=== PATIENT | male | born 2000 | race Caucasian/White ===

== ENCOUNTER 2018-05-01 01:23 | Emergency (ER) | payer OTHER ==
[~2018-05-01] VITALS: Ht 177.8 cm; Wt 77.1 kg
--- NOTE | ~2018-05-01 | EKG ---
[address] [employer] [place] [address] ELECTROCARDIOGRAM REPORT Name: EBEN ALATORRE Room #: DEP [facility] CENTERHemalatha#: [id number] Admission: 05/01/18 Attend Phys: Discharge: 05/01/18 Date of : [birth year] Report #: [id number] THIS REPORT FOR: //name// [facility] ED Test Date: 2018-05-01 Test Time: 02:20:00 Pat Name: EBEN ALATORRE Department: Room: Gender: [employer]: gabby : 2000 Requested By: Charles Neswome Order Number: [id number] MD: Enio Briggs Measurements Intervals Capac Rate: 53 P: -16 WA: 139 QRS: 46 QRSD: 99 T: 23 QT: 425 QTc: 399 Interpretive Statements Sinus rhythm No previous ECG available for comparison Electronically Signed On 05-01-2018 16:23:14 CDT by Enio Briggs [email or web address] <ELECTRONICALLY SIGNED> By: Enio Briggs MD 05/01/18 1623 0220 0220 Enio Briggs MD /EPI
[~2018-05-01 01:23] MED LIST: IBUPROFEN 600600 M1 PO; NOHOMEMEDICATIONS
[2018-05-01 02:13] LABS: BASOPHILS 0.8 % (0.0-2.0); EOSINOPHILS 0.8 % (0.0-3.0); HEMATOCRIT 49.6 % (42.0-52.0); HEMOGLOBIN 17.6 gm/dL (14.0-18.0); LYMPHOCYTES 18.2 % (24.0-44.0); MCH 32.2 pg (26.0-34.0); MCHC 35.5 g/dL (28.0-37.0); MCV 90.8 fL (80.0-100.0); MONOCYTES 7.5 % (1.0-8.0); PLATELET COUNT 230 thou/uL (150-400); POLYS 72.7 % (36.0-66.0); RBC 5.46 mil/uL (4.50-6.00); RDW 13.2 % (10.5-14.5)
[2018-05-01 02:22] LABS: APTT 29.1 Seconds (24.5-32.8); INR 1.1; PROTIME 10.8 Seconds (9.3-11.4)
[2018-05-01 02:33] LABS: ANION GAP 7 mmol/L (7-16); BUN 15 mg/dL (7-18); CALCIUM 9.4 mg/dL (8.5-10.1); CHLORIDE 103 mmol/L (98-107); CO2 28 mmol/L (21-32); CREATININE 1.1 mg/dL (0.7-1.3); GLUCOSE 88 mg/dL (74-106); SODIUM 138 mmol/L (136-145)
[2018-05-01 02:42] LABS: ALBUMIN 4.4 g/dL (3.4-5.0); SALICYLATE 3.6 mg/dL (2.8-20.0); SGOT 22 U/L (15-37); SGPT 35 U/L (30-65); TOTAL BILIRUBIN 1.2 mg/dL (<0.1-1.0); TOTAL PROTEIN 8.1 g/dL (6.4-8.2); TROPONIN-I <0.06 ng/mL (<0.06)
[2018-05-01] MEDS ORDERED: TRAMADOL 50 MG50 MG PO (04:19)
[2018-05-01] MEDS ORDERED: NAPROSYN500 MG PO (04:21)
[2018-05-01 04:54] VITALS: BP 118/93
== END 2018-05-01 05:18 | disposition home or self-care (01) ==
LOC: ER 01:23
PROVIDERS: Emergency Medicine
DX: S16.1XXA Strain of muscle, fascia and tendon at neck level, initial encounter (principal); S20.219A Contusion of unspecified front wall of thorax, initial encounter; S80.02XA Contusion of left knee, initial encounter; S80.01XA Contusion of right knee, initial encounter; S40.011A Contusion of right shoulder, initial encounter; S60.412A Abrasion of right middle finger, initial encounter; F17.210 Nicotine dependence, cigarettes, uncomplicated; Z88.6 Allergy status to analgesic agent; V49.40XA Driver injured in collision with unspecified motor vehicles in traffic accident, initial encounter; Y93.89 Activity, other specified; Y92.89 Other specified places as the place of occurrence of the external cause; Y99.8 Other external cause status

== ENCOUNTER 2020-04-09 14:45 | Emergency (ER) | payer OTHER ==
[~2020-04-09] VITALS: Ht 180.3 cm; Wt 79.4 kg
[~2020-04-09 14:45] MED LIST changes: +NAPROSYN500 MG PO; +TRAMADOL 50 MG50 MG PO
[2020-04-09] MEDS ORDERED: ULTRAM 50MG TAB50 MG PO (16:20)
[2020-04-09] MEDS ORDERED: ERYTHROMYCIN E3.5 G3 OPHTHALMIC (16:20)
[2020-04-09 16:39] VITALS: BP 143/76
== END 2020-04-09 16:40 | disposition home or self-care (01) ==
LOC: ER 14:45
DX: H57.12 Ocular pain, left eye (principal); F17.210 Nicotine dependence, cigarettes, uncomplicated; Z79.899 Other long term (current) drug therapy; Z88.8 Allergy status to other drugs, medicaments and biological substances